=== PATIENT | male | born 1955 | race Caucasian/White ===

== ENCOUNTER 2019-04-22 19:01 | Emergency (ER) | payer MEDICARE, OTHER ==
[~2019-04-22] VITALS: Ht 175.3 cm; Wt 78.1 kg
--- NOTE | 2019-04-22 19:44 | NUR ---
PT. TO ROOM AT THIS TIME.
--- NOTE | 2019-04-22 19:48 | NUR ---
PT. REPORTS HAD CATHETER PLACED AT 1600 TODAY. REPORTS HAD 750 ML OF WATER AND HAS HAD ONLY 100ML OF URINE OUTPUT.
--- NOTE | 2019-04-22 19:58 | NUR ---
ATTEMPTED BLADDER SACN; READING AT 17ML OR 15MLL; HOWEVER PT. ABD FEELS DISTENTED. MEDICAL STUDENT AT BS WITH US AT THIS TIME. PER MEDICAL STUDENT BLADDER DOESN'T APPEAR FULL ON US. DISCUSSING POC AT THIS TIME.
--- NOTE | 2019-04-22 20:16 | NUR ---
CAHT IRRIGATED WITH TOTAL OF 110ML OF STERILE WATER USING STERILE TECHNIQUE. PT. REPORTS RELIEF WITH THIS. CLEAR YELLOW URINE DRAINING. TOTAL OF 200ML OUT. CHAT IRRIGATE WITH EASE; NO CLOTS NOTED. MEDICAL STUDENT AWARE OF THIS.
[2019-04-22 21:52] VITALS: BP 139/81
== END 2019-04-22 21:53 | disposition home or self-care (01) ==
LOC: ED 21:47
DX: T83.9XXA Unspecified complication of genitourinary prosthetic device, implant and graft, initial encounter (principal); E86.0 Dehydration; I10 Essential (primary) hypertension; E78.00 Pure hypercholesterolemia, unspecified
CPT/HCPCS: 51700; 99284